=== PATIENT | male | born 1975 | race Two or more races ===

== ENCOUNTER 2018-09-16 14:05 | Inpatient (IN) | payer OTHER ==
[~2018-09-16] VITALS: Ht 165.1 cm; Wt 87.1 kg
[2018-10-17] MEDS ORDERED: LOTREL 5-20 MG1 CAP PO (15:19)
[2018-10-17] MEDS ORDERED: TOPROL XL25 M1 PO (15:19)
[2018-10-28] MEDS ORDERED: PERCOCET 5-3251 EACH PO (10:38)
[2018-10-28] MEDS ORDERED: INTESTINEX680 M1 PO (10:38)
[2018-10-29] MEDS ORDERED: PERCOCET 5-3251 EACH PO (13:59)
[2018-10-29] MEDS ORDERED: INTESTINEX680 M1 PO (13:59)
== END 2018-10-29 14:16 | disposition home or self-care (01) | DRG 331 ==
LOC: RECOVERY 10-17 11:00 → SURH 10-24 07:57 → O/R 10-24 07:57 → RECOVERY 10-24 11:00 → SURH 10-24 13:30
PROVIDERS: ADMIT Surgery
PROC: 0DJD8ZZ Inspection of Lower Intestinal Tract, Via Natural or Artificial Opening Endoscopic (ICD-10-PCS; 2018-10-24)
PROC: 0DTN4ZZ Resection of Sigmoid Colon, Percutaneous Endoscopic Approach (ICD-10-PCS; principal; 2018-10-24 11:00)
DX: K57.32 Diverticulitis of large intestine without perforation or abscess without bleeding (principal)